=== PATIENT | male | born 1995 | race Caucasian/White ===

== ENCOUNTER 2023-07-28 01:40 | Emergency (ER) | payer OTHER ==
[~2023-07-28] VITALS: Ht 170.2 cm; Wt 59.1 kg
[2023-07-28 01:48] VITALS: BP 115/68; PULSE 88; RESP 16; TEMP 97.2
== END 2023-07-28 03:43 | disposition home or self-care (01) ==
LOC: EMS 01:42
DX: R04.2 Hemoptysis (principal); F17.210 Nicotine dependence, cigarettes, uncomplicated
CPT/HCPCS: 71045; 99283